=== PATIENT | female | born 1965 | race Caucasian/White ===

== ENCOUNTER 2018-09-17 11:24 | Day surgery (SDC) | payer BC ==
[2018-09-17 11:40] VITALS: BMI 31.7
[2018-09-17] MEDS ORDERED: PROPOFOL 20 ML ONE (13:02)
[2018-09-17 14:26] VITALS: BP 124/82; PULSE 80; TEMP 97.9
== END 2018-09-17 14:15 | disposition home or self-care (01) ==
LOC: FASU-ENDO 11:24
PROVIDERS: ATTEND Internal Medicine Gastroenterology
PROC: 0DJD8ZZ Inspection of Lower Intestinal Tract, Via Natural or Artificial Opening Endoscopic (ICD-10-PCS; principal; 2018-09-17 13:13)
DX: Z12.11 Encounter for screening for malignant neoplasm of colon (principal); Z83.71 Family history of colonic polyps

== ENCOUNTER 2024-07-10 07:58 | Day surgery (SDC) | payer BC ==
[2024-07-03 14:00] VITALS: BMI 31.7
[2024-07-10 09:16] VITALS: TEMP 97.7
[2024-07-10 09:18] VITALS: BP 142/60; PULSE 90; RESP 20
== END 2024-07-10 09:40 | disposition home or self-care (01) ==
LOC: FASU-ENDO 07:58
PROVIDERS: ATTEND Internal Medicine Gastroenterology
PROC: 0DB98ZX Excision of Duodenum, Via Natural or Artificial Opening Endoscopic, Diagnostic (ICD-10-PCS; 2024-07-10)
PROC: 0DB68ZX Excision of Stomach, Via Natural or Artificial Opening Endoscopic, Diagnostic (ICD-10-PCS; 2024-07-10)
PROC: 0DJD8ZZ Inspection of Lower Intestinal Tract, Via Natural or Artificial Opening Endoscopic (ICD-10-PCS; principal; 2024-07-10 08:37)
DX: Z12.11 Encounter for screening for malignant neoplasm of colon (principal); K29.50 Unspecified chronic gastritis without bleeding; Z80.0 Family history of malignant neoplasm of digestive organs; Z83.719 Family history of colon polyps, unspecified; R10.12 Left upper quadrant pain
CPT/HCPCS: 82962; 88305-TC; 88342-TC